=== PATIENT | female | born 1970 | race Hispanic/Latino ===

== ENCOUNTER → 2017-03-26 | Outpatient (CLI) | payer BC, OTHER | END | disposition home or self-care (01) | LOC: RAH 13:47 | PROVIDERS: ATTEND Family Medicine | DX: N60.02 Solitary cyst of left breast (principal); N60.01 Solitary cyst of right breast | CPT/HCPCS: 76641; 77066 ==

== ENCOUNTER → 2018-03-26 | Outpatient (CLI) | payer BC | END | disposition home or self-care (01) | LOC: RAH 08:43 | PROVIDERS: ATTEND Family Medicine | DX: Z12.31 Encounter for screening mammogram for malignant neoplasm of breast (principal) | CPT/HCPCS: 77067 ==

== ENCOUNTER → 2022-05-09 | Outpatient (CLI) | payer OTHER | END | disposition home or self-care (01) | LOC: RAH 14:41 | PROVIDERS: ATTEND Obstetrics & Gynecology | DX: Z12.31 Encounter for screening mammogram for malignant neoplasm of breast (principal) | CPT/HCPCS: 77067 ==

== ENCOUNTER 2023-01-13 07:25 | Day surgery (SDC) | payer OTHER ==
[2023-01-07 13:26] VITALS: BP 129/67; PULSE 74; RESP 17
[2023-01-07 13:30] LABS: BASOPHILS # (AUTO) 0.03 K/uL (0.00-0.20); BASOPHILS % (AUTO) 0.7 % (0.0-5.0); EOSINOPHILS # (AUTO) 0.16 K/uL (0.00-0.70); EOSINOPHILS % (AUTO) 3.6 % (0.0-8.0); HEMATOCRIT 39.6 % (36-48); IMMATURE GRANULOCYTE ABSOLUTE 0.01 K/uL (0-1); LYMPHOCYTES # (AUTO) 1.5 K/uL (1.0-4.8); LYMPHOCYTES % (AUTO) 33.1 % (21.0-51.0); MEAN CORPUSCULAR HEMOGLOBIN 31.7 pg (27.0-33.0); MEAN CORPUSCULAR HGB CONC 34.3 g/dL (32.0-36.0); MEAN CORPUSCULAR VOLUME 92.3 fL (79-99); MONOCYTES # (AUTO) 0.4 K/uL (0.1-1.0); MONOCYTES % (AUTO) 8.7 % (3.0-13.0); NEUTROPHILS # (AUTO) 2.4 K/uL (1.8-7.7); NEUTROPHILS % (AUTO) 53.7 % (40.0-77.0); PLATELET COUNT (AUTO) 241 K/uL (130-400); RED BLOOD CELL COUNT(AUTO) 4.29 MIL/uL (4.00-5.50); RED CELL DISTRIBUTION WIDTH 12.1 % (11.0-15.5); WHITE BLOOD COUNT (AUTO) 4.5 K/uL (4.8-10.8)
[2023-01-07 13:38] LABS: CREATININE 0.7 mg/dL (0.5-1.5); POTASSIUM 4.1 mmol/L (3.5-5.1)
[2023-01-07 13:39] LABS: INR 0.95 (0.85-1.15); PROTHROMBIN TIME 11.1 SEC (9.6-11.6)
[2023-01-07 13:40] LABS: PARTIAL THROMBOPLASTIN TIME 29.7 SEC (26.3-35.5)
[~2023-01-13] VITALS: Ht 157.5 cm; Wt 51.8 kg
[2023-01-13] VITALS (18 sets, daily range): BP systolic 123–139; BP diastolic 67–88; PULSE 66–85; RESP 12–18
[2023-01-13] MEDS ORDERED: BUPIVACAINE/PF 0.5% 30ML VIAL ONE (09:07)
[2023-01-13] MEDS ORDERED: LACTATED RINGERS 1000ML 1,000 ML IV ONE (09:08)
[2023-01-13] MEDS ORDERED: CLINDAMYCIN IVPB 600MG/50ML 50 ML IV ONE (09:08)
[2023-01-13] MEDS ORDERED: MIDAZOLAM HCL 1 MG/ML 2ML VIAL ONE (10:04)
[2023-01-13] MEDS ORDERED: LIDOCAINE PF 100MG/5ML (2%) SYRINGE 5ML ONE (10:25)
[2023-01-13] MEDS ORDERED: PROPOFOL 10 MG/ML 20ML VIAL IV ONE (10:25)
[2023-01-13] MEDS ORDERED: FENTANYL CITRATE PF 50 MCG/1 ML 2ML VIAL ONE (10:25)
[2023-01-13] MEDS ORDERED: DEXAMETHASONE SOD PHOSPHATE 4 MG/ML 1ML VIAL ONE (10:38)
[2023-01-13] MEDS ORDERED: ONDANSETRON 4MG INJ ONE ×2 (10:39→12:35)
[2023-01-13] MEDS ORDERED: GLYCOPYRROLATE 1 MG/5 ML SYRINGE ONE (10:50)
[2023-01-13] MEDS ORDERED: METH-662 PO (11:27)
[2023-01-13] MEDS ORDERED: TRAM50TA4 PO (11:27)
[2023-01-13] MEDS ORDERED: DOCU-116 PO (11:27)
[2023-01-13] MEDS ORDERED: MEPERIDINE-PF 25 MG/ML SYG ONE (12:36)
== END 2023-01-13 13:50 | disposition home or self-care (01) ==
LOC: DAH 07:25
PROVIDERS: ATTEND Surgery
DX: D17.23 Benign lipomatous neoplasm of skin and subcutaneous tissue of right leg (principal); K21.9 Gastro-esophageal reflux disease without esophagitis; Z82.49 Family history of ischemic heart disease and other diseases of the circulatory system; Z83.3 Family history of diabetes mellitus; Z80.9 Family history of malignant neoplasm, unspecified; Z88.0 Allergy status to penicillin; Z79.01 Long term (current) use of anticoagulants; Z79.899 Other long term (current) drug therapy
CPT/HCPCS: 36415; 80048; 85025; 85730; 85610; 27339; 81025; A6260; J1100; A4663; J7120 ×2; J3010; J3490 ×2; J2001; J2250; J2704; J2405 ×2; J0665; J2175; A4215; A4223; A4222; A4221

== ENCOUNTER → 2023-05-14 | Outpatient (CLI) | payer OTHER ==
[~2023-05-14] MED LIST: DOCU-116 PO; METH-662 PO; TRAM50TA4 PO
== END | disposition home or self-care (01) ==
LOC: RAH 07:51
PROVIDERS: ATTEND Family Medicine
DX: Z12.31 Encounter for screening mammogram for malignant neoplasm of breast (principal)
CPT/HCPCS: 77067

== ENCOUNTER 2024-02-15 13:02 | Emergency (ER) | payer OTHER ==
[~2024-02-15] VITALS: Ht 157.5 cm; Wt 51.3 kg
--- NOTE | 2024-02-15 13:11 | ERN ---
ED Note History of Present Illness Stated Complaint: FALL Chief Complaint: Mechanical Fall Time Seen by MD: 13:06 Dictation: PATIENT IS A 53-YEAR-OLD FEMALE STATES SHE HAD HER BACK PACK FALL AND SHE TRIPPED ON IT FELL FORWARD AND HIT HER FACE AND UPPER LIP. SHE HAS MILD NASAL AND UPPER LIP SWELLING. TMJ IS INTACT. QUESTIONABLE LOC, NO BLOOD THINNERS NO NECK PAIN AND NO TRAUMA ALERT CRITERIA. MOVES ALL EXTREMITIES 5/5 BILATERALLY. Allergies: Coded Allergies: Penicillins (Unverified Allergy, Unknown, 01/07/23) Home Meds Active Scripts Methocarbamol (Robaxin) 750 Mg Tab, 500 MG PO TID, #12 TAB 0 Refills Prov:CASSANDRA OLIVER MD 01/13/23 Docusate Sodium (Colace) 100 Mg Capsule, 100 MG PO BID, #30 CAP 0 Refills Prov:CASSANDRA OLIVER MD 01/13/23 Tramadol Hcl (Tramadol HCl) 50 Mg Tablet, 50 MG PO Q6HPRN PRN for PAIN, #28 TAB 0 Refills Prov:CASSANDRA OLIVER MD 01/13/23 Past Medical History PSYCH History: no pertinent psych hx History: Not Applicable RN Note Reviewed/Agreed w/PFSH: Yes Review of System Dictation CONSTITUTIONAL: NEGATIVE EXCEPT FOR HPI HEAD/FACE: NEGATIVE EXCEPT FOR HPI FACIAL PAIN TO NOSE AND UPPER LIP CHEEK EENT: NEGATIVE EXCEPT FOR HPI RESPIRATORY: NEGATIVE EXCEPT FOR HPI GASTROINTESTINAL/ABDOMINAL: NEGATIVE EXCEPT FOR HPI GENITOURINARY: NEGATIVE EXCEPT FOR HPI MUSCULOSKELETAL: NEGATIVE EXCEPT FOR HPI INTEGUMENTARY: NEGATIVE EXCEPT FOR HPI NEUROLOGICAL/PSYCH: NEGATIVE EXCEPT FOR HPI HEMATOLOGIC/LYMPHATIC: NEGATIVE EXCEPT FOR HPI ALL SYSTEMS NEGATIVE, EXCEPT NOTED ABOVE. 13 POINT REVIEW OF SYSTEMS ASSESSED AND ALL NEGATIVE EXCEPT FOR ABOVE. Initial Vital Sign VS Vital Signs Date Time Temp Pulse Resp B/P (MAP) Pulse Ox O2 Delivery O2 Flow Rate FiO2 02/15/24 13:06 97.2 78 20 171/81 98 Room Air 0 02/15/24 13:12 21 Physical Exam Dictation VITAL SIGNS REVIEWED GENERAL APPEARANCE: ALERT, ORIENTED X 3, NO ACUTE DISTRESS, WELL DEVELOPED, NOURISHED. HEAD AND FACE: NASAL SWELLING AND TENDERNESS WITHOUT EPISTAXIS EYES: PERRL, PINK CONJUNCTIVAS, EYELID NO TRAUMA, ANTERIOR CHAMBER WITH ARCUS SENILIS. EARS: PINNAS INTACT AND NO SIGNS OF TRAUMA OR ERYTHEMA EAR CANALS CLEAR AND NO DISCHARGE TM NO ERYTHEMA NO HEMOTYMPANUM NOSE: NO DISCHARGE, NO BLEEDING. NASAL SWELLING MILD OROPHARYNX: LEFT UPPER LIP SWELLING TENDERNESS TEETH INTACT TMJ NEGATIVE FULL RANGE OF MOTION TO JAW PHARYNX CLEAR,NO ERYTHEMA, TONSILS NO EXUDATES, NO ABSCESSES NOTED, MUCOUS MEMBRANE MOIST NECK: SUPPLE, NON-TENDER, NO THYROMEGALY, NO MASSES, NO JVD, NO BRUITS NO MIDLINE SPINE PAIN BREAST:DEFERRED CHEST:NO TENDERNESS, NO CREPITUS, NO PARADOXICAL MOVEMENT, NO RETRACTIONS LUNGS:CLEAR, WELL-VENTILATED, SYMMETRIC, NO RALES, NO WHEEZING, NO RHONCHI, NO STRIDOR, GOOD BREATH SOUNDS BILATERALLY HEART: REGULAR RATE, REGULAR RHYTHM, NO MURMUR, NO GALLOPS VASCULAR: NO PERIPHERAL EDEMA, ABDOMEN: SOFT, POSITIVE BOWEL SOUNDS, NONDISTENDED, NO GUARDING, NONTENDER, NO REBOUND, NO MASSES NO HEPATOMEGALY, NO SPLENOMEGALY, NO STARKEY'S SIGN, NO HERNIAS. RECTAL: DEFERRED GENITAL: DEFERRED NEUROLOGICAL: NORMAL SPEECH, MOTOR FUNCTION INTACT, SENSORY FUNCTION INTACT MUSCULOSKELETAL: NECK NONTENDER, FULL RANGE OF MOTION, BACK NONTENDER, FULL RANGE OF MOTION, EXTREMITIES: NONTENDER, FULL RANGE OF MOTION SKIN: COLOR PINK, DRY, NO TURGOR, NO RASH, NO LACERATIONS, NO ABRASIONS, NO CONTUSIONS. LYMPHATIC: DEFERRED Results (Laboratory/Radiology) Laboratory/Radiology CT MAXILLOFACIAL W/O CONTRAST REASON: TRIP AND SAME LEVEL FALL HIT NOSE AND FACE COMPARISON: None TECHNIQUE: Axial images are obtained through the facial bones with bone and soft tissue window presentation. Sagittal and coronal reconstruction images were then performed. FINDINGS: There are normal-appearing facial bones. There are no visible fractures. This includes normal appearance of the nasal bones. There are mucous retention cysts or polyps in the base of both maxillary sinuses. Sinuses are otherwise normally aerated. Globes and retrobulbar soft tissues appear normal. Remaining soft tissues appear unremarkable. There are no soft tissue foreign bodies. IMPRESSION: 1. Negative maxillofacial CT, no facial fractures identified. 2. Mucous retention cyst or polyps in the base of both maxillary sinuses. Labs Reviewed?: Yes ED Course ED Course Orders Procedure Category Date Status Time Acetaminophen With PHA 02/15/24 Complete Codeine (Tylenol-Code 13:30 Ct Maxillofacial W/O CT 12/30/24 Resulted Contrast 13:08 Current Medications Medications (Trade) Dose Ordered Sig/Alexis Route PRN Reason Start Time Stop Time Status Last Admin Dose Admin Acetaminophen/ Codeine Phosphate (TYLenol-coDEINE TAB) 2 tab ONCE ONCE PO 02/15/24 13:30 02/15/24 13:31 DC Vital Signs Date Time Temp Pulse Resp B/P (MAP) Pulse Ox O2 Delivery O2 Flow Rate FiO2 02/15/24 13:12 97.2 78 20 171/81 98 Room Air* 0 21 02/15/24 13:06 97.2 78 20 171/81 98 Room Air 0 1505, PATIENT REMAINS NEUROLOGICALLY INTACT WE WILL BE DISCHARGED HOME WITH FACIAL CONTUSION AND FALL TOLD TO SEE YOUR PRIMARY CARE DOCTOR. SHE WILL BE GIVEN CLOSED-HEAD INJURY INSTRUCTIONS. Medical Decision Making MDM MEDICAL DECISION-MAKING WAS BASED ON PHYSICAL EXAMINATION AND CT MAXILLOFACIAL. CT NEGATIVE PATIENT NEUROLOGICALLY INTACT DISCHARGED HOME WITH CLOSED HEAD INJURY INSTRUCTION DX & DISP Disposition: Discharge Departure Impression: Primary Impression: Contusion of face Additional Impressions: Fall, Closed head injury Condition: Stable Additional Instructions: FOLLOW-UP WITH PRIMARY CARE PROVIDER IN 1 TO 2 DAYS. TAKE MEDICATIONS DIRECTED HERE IN THE EMERGENCY ROOM. OKAY TO CONTINUE HOME MEDICATIONS UNLESS OTHERWISE DISCUSSED DURING YOUR VISIT IN THE EMERGENCY ROOM TODAY. RETURN TO YOUR NEAREST EMERGENCY ROOM IF SYMPTOMS WORSEN OR IF THERE IS NO IMPROVEMENT. CALL 911 IF YOU NEED IMMEDIATE ASSISTANCE. TAKE TYLENOL OR MOTRIN [id number] NEEDED AND IF NO CONTRAINDICATIONS ARE PRESENT. INCREASE ORAL HYDRATION. A WOUND CULTURE OR URINE CULTURE WAS ORDERED HERE IN THE EMERGENCY ROOM DEPARTMENT PLEASE FOLLOW-UP WITH PRIMARY CARE PROVIDER AND ADVISE THEM TO GET REPEAT PORTS FROM OUR FACILITY. IF YOU HAD ANY KERWIN WRAP/SPLINTS THAT WERE APPLIED HERE, PLEASE DO NOT REMOVE THEM UNTIL YOU SEE YOUR PRIMARY CARE OR SPECIALTY. COOL COMPRESSES TO FACE THREE TO 4 TIMES A DAY. FOLLOW UP WITH YOUR PRIMARY CARE DOCTOR IN 1-2 DAYS. RETURN TO THE EMERGENCY ROOM IF ANY CHANGES FROM HEAD INJURY WORK SHEET. Referrals: RADHA CUNNINGHAM MD (PCP) Time of Disposition: 15:06 and I agree with, Diagnosis and Plan SALVADOR WEEKS NP Feb 15, 2024 13:11
[2024-02-15 13:12] VITALS: BP 171/81; PULSE 78; RESP 20; TEMP 97.1; O2SAT 98
[2024-02-15] MEDS: acetaMINOPHEN WITH coDEINE 1 TAB TAB PO ONE (14:49)
--- NOTE | 2024-02-15 14:56 | HMCIMG ---
CT MAXILLOFACIAL W/O CONTRAST REASON: TRIP AND SAME LEVEL FALL HIT NOSE AND FACE COMPARISON: None TECHNIQUE: Axial images are obtained through the facial bones with bone and soft tissue window presentation. Sagittal and coronal reconstruction images were then performed. FINDINGS: There are normal-appearing facial bones. There are no visible fractures. This includes normal appearance of the nasal bones. There are mucous retention cysts or polyps in the base of both maxillary sinuses. Sinuses are otherwise normally aerated. Globes and retrobulbar soft tissues appear normal. Remaining soft tissues appear unremarkable. There are no soft tissue foreign bodies. IMPRESSION: 1. Negative maxillofacial CT, no facial fractures identified. 2. Mucous retention cyst or polyps in the base of both maxillary sinuses.
== END 2024-02-15 15:18 | disposition home or self-care (01) ==
LOC: EDH 13:02
DX: S00.83XA Contusion of other part of head, initial encounter (principal); S09.90XA Unspecified injury of head, initial encounter; Z88.0 Allergy status to penicillin; Z79.899 Other long term (current) drug therapy; W01.0XXA Fall on same level from slipping, tripping and stumbling without subsequent striking against object, initial encounter; Y93.89 Activity, other specified; Y92.89 Other specified places as the place of occurrence of the external cause; Y99.8 Other external cause status
CPT/HCPCS: 70486; 99284

== ENCOUNTER → 2024-05-16 | Outpatient (CLI) | payer OTHER ==
--- NOTE | 2024-05-16 09:58 | HMCIMG ---
MAMMO SCREENING BILATERAL HISTORY: Screening mammogram. COMPARISON: 05/14/2023 TECHNIQUE: Bilateral screening mammogram with CAD was performed with craniocaudal and mediolateral oblique projections. FINDINGS: There are scattered areas of fibroglandular density. There is no evidence of a dominant mass, or suspicious microcalcification. There is no evidence of nipple retraction or skin thickening. IMPRESSION: 1. Stable mammogram. Patient was entered into a reminder system with a target due date for their next mammogram. BI-RADS: CATEGORY 2: BENIGN FINDINGS Recommend monthly self breast exam as well as annual clinical examination. A negative x-ray should not delay biopsy if a dominant or clinically suspicious mass is present, since 8-10% of cancers are not identified by mammography. Dense breasts particularly, may obscure an underlying neoplasm. Some of these may be detected clinically and therefore, clinical examination is an essential part of breast evaluation.
== END | disposition home or self-care (01) ==
LOC: RAH 09:23
PROVIDERS: ATTEND Family Medicine
DX: Z12.31 Encounter for screening mammogram for malignant neoplasm of breast (principal); R92.323 Mammographic fibroglandular density, bilateral breasts
CPT/HCPCS: 77067